=== PATIENT | female | born 1985 | race Caucasian/White ===

== ENCOUNTER 2018-07-10 16:01 | Emergency (ER) | payer OTHER ==
[2018-07-10] MEDS ORDERED: DICYCLOMINE HCL INJ 20 MG/2 ML AMPULE IM ONE (16:39)
[2018-07-10] MEDS ORDERED: KETOROLAC TROMETHAMINE INJ/PF 30 MG/1 ML SDV IV ONE (16:39)
--- NOTE | 2018-07-10 16:39 | ER Document Report ---
ED Medical Screen (RME) - General TRAVEL OUTSIDE OF THE [place] IN LAST 30 DAYS: No <ABDOULAYE QUINTANA - Last Filed: 07/10/18 16:39> <ELIO MCRAE - Last Filed: 07/10/18 19:30> - General Chief Complaint: Abdominal Pain Stated Complaint: ABDOMINAL PAIN Time Seen by Provider: 07/10/18 16:29 Notes: 32 years old female presents today with left-sided abdominal pain for the last 3 days. Denies any dysuria frequency urgency. Diffuse abdominal tenderness noted (ABDOULAYE QUINTANA) - Related Data Allergies/Adverse Reactions: clarithromycin [From Biaxin] Allergy (Verified 07/10/18 16:29) Past Medical History - Social History Chew tobacco use (# tins/day): No Frequency of alcohol use: Social Drug Abuse: None Renal/ Medical History: Denies: Hx Peritoneal Dialysis Past Surgical History: Reports: Hx Abdominal Surgery - laprascopy, colonoscopy <ABDOULAYE QUINTANA - Last Filed: 07/10/18 16:39> - Vital signs Vitals: Temp Pulse Resp BP Pulse Ox 98.9 F 91 18 127/82 H 100 07/10/18 16:19 07/10/18 16:19 07/10/18 16:19 07/10/18 16:19 07/10/18 16:19 Course - Laboratory Result Diagrams: 07/10/18 17:31 07/10/18 17:31 <ELIO MCRAE - Last Filed: 07/10/18 19:30> - Vital Signs Vital signs: Temp Pulse Resp BP Pulse Ox 98.9 F 91 18 127/82 H 100 07/10/18 16:19 07/10/18 16:19 07/10/18 16:19 07/10/18 16:19 07/10/18 16:19 - Laboratory Laboratory results interpreted by me: 07/10/18 17:31 Urine Blood MODERATE H Doctor's Discharge <ABDOULAYE QUINTANA - Last Filed: 07/10/18 16:39> <ELIO MCRAE - Last Filed: 07/10/18 19:30> - Discharge Clinical Impression: Epigastric pain Condition: Stable Disposition: HOME, SELF-CARE Instructions: Gastritis ([facility]), Ulcer ([facility]) Prescriptions: Bismuth Subsalicylate [Stomach Relief] 262 mg PO QID 14 Days tab.chew Metronidazole [Flagyl 250 mg Tablet] 250 mg PO Q6H 14 Days #21 tablet Omeprazole 20 mg PO BID #30 tablet. Tetracycline HCl 500 mg PO QID 14 Days capsule Forms: Return to Work
--- NOTE | 2018-07-10 17:37 | RADIOLOGY REPORT (SQ) ---
EXAM DESCRIPTION: KUB/ABDOMEN (SINGLE VIEW) COMPLETED DATE/TIME: 07/10/2018 5:23 pm REASON FOR STUDY: Abdominal pain COMPARISON: None. NUMBER OF VIEWS: One view. TECHNIQUE: Supine radiographic image of the abdomen acquired. LIMITATIONS: None. FINDINGS: BOWEL GAS PATTERN: Normal bowel gas pattern. No dilated loops. CALCIFICATIONS: No suspicious calcifications. SOFT TISSUES: No gross mass or suggestion of organomegaly. HARDWARE: None in the abdomen. BONES: No acute fracture. No worrisome bone lesions. OTHER: No other significant finding. IMPRESSION: NO RADIOGRAPHIC EVIDENCE FOR ACUTE ABDOMINAL DISEASE. TECHNICAL DOCUMENTATION: JOB ID: [id number] [employer]- All Rights Reserved Reading location - IP/workstation name: [email or web address]
[2018-07-10 18:04] LABS: ABSOLUTE EOSINOPHILS # (AUTO) 0.2 10^3/uL (0.0-0.6); ABSOLUTE LYMPHOCYTES (AUTO) 2.8 10^3/uL (0.5-4.7); ABSOLUTE MONOCYTES (AUTO) 0.7 10^3/uL (0.1-1.4); ABSOLUTE NEUT (AUTO) 3.1 10^3/uL (1.7-8.2); BASOPHILS % (AUTO) 0.4 % (0-2); EOSINOPHILS % (AUTO) 3.2 % (0-6); HEMATOCRIT 39.4 % (36.0-47.0); HEMOGLOBIN 13.6 g/dL (12.0-15.5); LYMPHOCYTES % (AUTO) 40.2 % (13-45); MEAN CORPUSCULAR HEMOGLOBIN 30.6 pg (27.0-33.4); MEAN CORPUSCULAR HGB CONC 34.6 g/dL (32.0-36.0); MEAN CORPUSCULAR VOLUME 88 fl (80-97); MONOCYTES % (AUTO) 10.4 % (3-13); PLATELET COUNT 341 10^3/uL (150-450); RED BLOOD COUNT 4.46 10^6/uL (3.72-5.28); RED CELL DISTRIBUTION WIDTH 12.7 % (11.5-14.0); SEGMENTED NEUTROPHILS % (AUTO) 45.8 % (42-78); TOTAL CELLS COUNTED % (AUTO) 100 %; WHITE BLOOD COUNT 6.8 10^3/uL (4.0-10.5)
[2018-07-10 18:05] LABS: APPEARANCE,URINE CLEAR; BILIRUBIN,URINE NEGATIVE (NEGATIVE); COLOR,URINE YELLOW; GLUCOSE, URINE NEGATIVE (NEGATIVE); KETONES,URINE NEGATIVE (NEGATIVE); LEUKOCYTE ESTERASE,URINE NEGATIVE (NEGATIVE); NITRITE,URINE NEGATIVE (NEGATIVE); PROTEIN,URINE NEGATIVE (NEGATIVE); URINE SPECIFIC GRAVITY 1.019; UROBILINOGEN,URINE NEGATIVE mg/dL (<2.0)
[2018-07-10 18:18] LABS: ALANINE AMINOTRANSFERASE 13 U/L (9-52); ALBUMIN 4.8 g/dL (3.5-5.0); ALKALINE PHOSPHATASE 82 U/L (38-126); ANION GAP 11 (5-19); ASPARTATE AMINO TRANSFERASE 15 U/L (14-36); BILIRUBIN,DIRECT 0.2 mg/dL (0.0-0.4); BILIRUBIN,TOTAL 0.3 mg/dL (0.2-1.3); BLOOD UREA NITROGEN 14 mg/dL (7-20); CALCIUM 9.9 mg/dL (8.4-10.2); CARBON DIOXIDE 28 mmol/L (22-30); CHLORIDE 103 mmol/L (98-107); GLUCOSE 87 mg/dL (75-110); LIPASE 114.5 U/L (23-300); POTASSIUM 4.1 mmol/L (3.6-5.0); SODIUM 141.9 mmol/L (137-145); TOTAL PROTEIN 7.7 g/dL (6.3-8.2)
[2018-07-10 19:36] VITALS: BP 102/72
--- NOTE | 2018-07-10 22:58 | ER Document Report ---
Entered by TRAVON LEWIS SCRIBE 07/10/18 193 Acting as scribe for:ELIO MCRAE DO ED GI/ - General Chief Complaint: Abdominal Pain Stated Complaint: ABDOMINAL PAIN Time Seen by Provider: 07/10/18 16:29 Information source: Patient Notes: 32-year-old female who presents to the emergency department today with complaints of epigastric abdominal pain. Patient states she had a similar episode 10 days ago, it subsided, and then began again x3 days ago and has been consistent since then. Patient states she has had similar symptoms to this in the past when she was diagnosed with H. pylori. TRAVEL OUTSIDE OF THE [place] IN LAST 30 DAYS: No - Related Data Allergies/Adverse Reactions: clarithromycin [From [employer]] Allergy (Verified 07/10/18 16:29) Past Medical History - General Information source: Patient - Social History Smoking Status: Never Smoker Chew tobacco use (# tins/day): No Frequency of alcohol use: Social Drug Abuse: None Lives with: Family Family History: Reviewed & Not Pertinent Patient has suicidal ideation: No Patient has homicidal ideation: No Past Surgical History: Reports: Hx Abdominal Surgery - laprascopy, colonoscopy Review of Systems - Review of Systems Constitutional: No symptoms reported EENT: No symptoms reported Cardiovascular: No symptoms reported Respiratory: No symptoms reported Gastrointestinal: See HPI, Abdominal pain Genitourinary: No symptoms reported Female Genitourinary: No symptoms reported Musculoskeletal: No symptoms reported Skin: No symptoms reported Hematologic/Lymphatic: No symptoms reported Neurological/Psychological: No symptoms reported -: Yes All other systems reviewed and negative Physical Exam - Vital signs Vitals: Temp Pulse Resp BP Pulse Ox 98.9 F 91 18 127/82 H 100 07/10/18 16:19 07/10/18 16:19 07/10/18 16:19 07/10/18 16:19 07/10/18 16:19 Interpretation: Normal - General General appearance: Appears well, Alert - HEENT Head: Normocephalic, Atraumatic Eyes: Normal Pupils: PERRL - Respiratory Respiratory status: No respiratory distress Chest status: Nontender Breath sounds: Normal Chest palpation: Normal - Cardiovascular Rhythm: Regular Heart sounds: Normal auscultation Murmur: No - Abdominal Inspection: Normal Distension: No distension Bowel sounds: Normal Tenderness: Nontender Organomegaly: No organomegaly - Back Back: Normal, Nontender - Extremities General upper extremity: Normal inspection, Nontender, Normal color, Normal ROM, Normal temperature General lower extremity: Normal inspection, Nontender, Normal color, Normal ROM, Normal temperature, Normal weight bearing. No: Adam's sign - Neurological Neuro grossly intact: Yes Cognition: Normal Orientation: AAOx4 [place] Coma Scale Eye Opening: Spontaneous [place] Coma Scale Verbal: Oriented [place] Coma Scale Motor: Obeys Commands [place] Coma Scale Total: 15 Speech: Normal Motor strength normal: LUE, RUE, LLE, RLE Sensory: Normal - Psychological Associated symptoms: Normal affect, Normal mood - Skin Skin Temperature: Warm Skin Moisture: Dry Skin Color: Normal Course - Re-evaluation Re-evalutation: 07/10/18 Patient with epigastric pain and history of gastritis/ulcers from H. pylori. Appears well. Labs within normal limits. Patient would like to do treatment a gain for H. pylori. 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 Patient will be started on therapy to treat H. pylori. Return if any worsening or concerning symptoms. Understands agrees with plan. Stable for discharge. - Vital Signs Vital signs: Temp Pulse Resp BP Pulse Ox 98.5 F 75 18 102/72 100 07/10/18 19:35 07/10/18 19:35 07/10/18 19:35 07/10/18 19:35 07/10/18 19:35 - Laboratory Result Diagrams: 07/10/18 17:31 07/10/18 17:31 Laboratory results interpreted by me: 07/10/18 17:31 Urine Blood MODERATE H Discharge - Discharge Clinical Impression: Epigastric pain Condition: Stable Disposition: HOME, SELF-CARE Instructions: Gastritis ([facility]), Ulcer ([facility]) Prescriptions: Bismuth Subsalicylate [Stomach Relief] 262 mg PO QID 14 Days tab.chew Metronidazole [Flagyl 250 mg Tablet] 250 mg PO Q6H 14 Days #21 tablet Omeprazole 20 mg PO BID #30 tablet.dr Tetracycline HCl 500 mg PO QID 14 Days capsule Forms: Return to Work Scribe Attestation: 07/10/18 22:58 I personally performed the services described in the documentation, reviewed and edited the documentation which was dictated to the scribe in my presence, and it accurately records my words and actions. I personally performed the services described in the documentation, reviewed and edited the documentation which was dictated to the scribe in my presence, and it accurately records my words and actions.
[2018-07-14 03:37] LABS: HELICOBACTER PYLORI IGA AB <9.0 units (0.0-8.9); HELICOBACTER PYLORI IGG AB <0.80 (0.00-0.79); HELICOBACTER PYLORI IGM AB <9.0 units (0.0-8.9)
== END 2018-07-10 19:36 | disposition home or self-care (01) ==
LOC: ER 16:01
DX: R10.13 Epigastric pain (principal); Z88.1 Allergy status to other antibiotic agents; Z87.19 Personal history of other diseases of the digestive system
CPT/HCPCS: 99284; 96372; 96374; 86677 ×3; 36415; 83690; 85025; 81025; 80053; 81001; 74018; J0500; J1885